=== PATIENT | male | born 1950 | race Caucasian/White ===

== ENCOUNTER 2020-08-07 15:52 | Inpatient (IN) | payer OTHER ==
--- NOTE | 2020-08-07 16:52 | BHS.RME ---
Substance Use & Tx History - Last Treatment Where was last treatment: ER ([facility] 1 week ago , [facility] yesterday and today,d/c paperwork indicates dx alcohol intoxication , given Lorazepam , Versed .) Physical/Psych/Mental Status - Behavior Eye Contact: Normal - Cooperativeness Cooperativeness: Cooperative - Thinking Thought Processes: Logical - Physical Health Problems Is patient presently having any pain?: Yes (right hand ) Does patient presently have any injuries (include location): Yes (right hand ) Does patient currently have a fever: No CIWA Nausea/Vomitin-No Nausea/No Vomiting Muscle Tremors: 4-Moderate,w/Arms Extend Anxiety: 3 Agitation: 0-Normal Activity Paroxysmal Sweats: 1-Minimal Palms Moist Orientation: 0-Oriented Tacttile Disturbances: 2-Mild Itch/Numbness/Burn Auditory Disturbances: 0-None Visual Disturbances: 0-None Headache: 0-None Present CIWA-Ar Total Score: 10
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
[2020-08-07] MEDS ORDERED: MENTHOL/PHENOL 1 EACH UD MM PRN (17:26)
[2020-08-07] MEDS ORDERED: ACETAMINOPHEN 325 MG TABLET (FP) PO PRN (17:26)
[2020-08-07] MEDS ORDERED: hydrOXYzine PAMOATE 25 MG CAPSULE (FP) PO PRN (17:26)
[2020-08-07] MEDS ORDERED: BISMUTH SUBSALICYLATE 524 MG/30 ML UD PO PRN (17:26)
[2020-08-07] MEDS ORDERED: MAGNESIUM HYDROX 2400MG/30ML ORAL SUSPENSION 30 ML CUP PO PRN (17:26)
[2020-08-07] MEDS ORDERED: MAGNESIUM CITRATE 300 ML BOTTLE PO PRN (17:26)
[2020-08-07] MEDS ORDERED: ONDANSETRON *ODT* 4 MG TABLET SL PRN (17:26)
[2020-08-07] MEDS ORDERED: MAG HYDROX/AL HYDROX/SIMETH 30 ML UNIT-DOSE CUP PO PRN (17:26)
[2020-08-07] MEDS ORDERED: chlordiazePOXIDE HCL 25 MG CAPSULE PO PRN (17:39)
[2020-08-07] MEDS ORDERED: chlordiazePOXIDE HCL 25 MG CAPSULE PO ONE (17:39)
[2020-08-07 18:03] VITALS: BMI 26.6
[2020-08-07] MEDS: chlordiazePOXIDE HCL 25 MG CAPSULE PO SCH (22:31)
[2020-08-07] MEDS: THIAMINE HCL 100 MG TABLET (FP) PO SCH (22:31)
[2020-08-07] MEDS: METOPROLOL TARTRATE 25 MG TABLET (FP) PO SCH (22:32)
[2020-08-07] MEDS: MELATONIN 5 MG TABLETS PO SCH (22:32)
[2020-08-07] MEDS: BACITRACIN 0.9 GM PACKET TP SCH (22:33)
[2020-08-08] MEDS: chlordiazePOXIDE HCL 25 MG CAPSULE PO SCH ×4 (05:57→22:15)
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
[2020-08-08] MEDS: BACITRACIN 0.9 GM PACKET TP SCH ×2 (10:19→22:12)
[2020-08-08] MEDS: PRENATAL VITAMINS W/ FOLIC ACID TABLET (FP) PO SCH (10:20)
[2020-08-08] MEDS: METOPROLOL TARTRATE 25 MG TABLET (FP) PO SCH ×2 (10:20→22:11)
[2020-08-08] MEDS: DIVALPROEX SODIUM 500 MG TABLET E.C. PO SCH ×2 (10:21→22:11)
[2020-08-08 10:22] LABS: ALBUMIN 3.6 g/dl (3.4-5.0); BILIRUBIN,TOTAL 2.5 mg/dL (0.2-1); BLOOD UREA NITROGEN 5.3 mg/dL (7-18); CALCIUM 9.1 mg/dL (8.5-10.1); CREATININE 0.8 mg/dL (0.55-1.3); POTASSIUM 3.9 mmol/L (3.5-5.1); TOT PROT 7.4 g/dl (6.4-8.2)
[2020-08-08 10:25] LABS: HEMATOCRIT 43.5 % (35.4-49); HEMOGLOBIN 14.6 GM/dL (11.7-16.9); MCH 31.9 pg (25.7-33.7); MCHC 33.6 g/dl (32.0-35.9); PLATELET COUNT 168 K/MM3 (134-434); RBC 4.58 M/mm3 (4.00-5.60); RDW 14.2 % (11.9-15.9); WHITE BLOOD COUNT 4.9 K/mm3 (4.0-10.0)
[2020-08-08] MEDS: OXYBUTYNIN CHLORIDE 5 MG TABLET PO SCH ×2 (11:16→22:11)
[2020-08-08] MEDS: CLINDAMYCIN PHOSPHATE 1% TOPICAL GEL 30 GM TUBE TP SCH ×2 (11:16→23:42)
[2020-08-08] MEDS: TAMSULOSIN HCL 0.4 MG CAP PO SCH (11:49)
[2020-08-08] MEDS: traZODone HCL 50 MG TABLET (FP) PO SCH (22:11)
[2020-08-08] MEDS: ATORVASTATIN CA 10 MG TABLET (FP) PO SCH (22:11)
[2020-08-08] MEDS: THIAMINE HCL 100 MG TABLET (FP) PO SCH (22:11)
[2020-08-08] MEDS: MELATONIN 5 MG TABLETS PO SCH (23:43)
[2020-08-09] MEDS: chlordiazePOXIDE HCL 25 MG CAPSULE PO SCH ×4 (05:37→23:03)
--- NOTE | 2020-08-09 09:28 | PN ---
[facility] CIWA - CIWA Score Nausea/Vomitin-Mild Nausea/No Vomiting Muscle Tremors: 2 Anxiety: 2 Agitation: 2 Paroxysmal Sweats: No Perspiration Orientation: 0-Oriented Tacttile Disturbances: 1-Very Mild Itch/Numbness Auditory Disturbances: 0-None Visual Disturbances: 0-None Headache: 2-Mild CIWA-Ar Total Score: 10 S Progress Note (SOAP) Subjective: alert,irritable,anxious,interrupted sleep,aching pain Objective: 08/09/20 15:00 Vital Signs Temperature 98.0 F 08/09/20 13:00 Pulse Rate 68 08/09/20 13:00 Respiratory Rate 16 08/09/20 13:00 Blood Pressure 103/64 08/09/20 13:00 O2 Sat by Pulse Oximetry (%) 98 08/09/20 13:00 08/09/20 15:00 Laboratory Last Values WBC 4.9 K/mm3 (4.0-10.0) 08/08/20 08:00 RBC 4.58 M/mm3 (4.00-5.60) 08/08/20 08:00 Hgb 14.6 GM/dL (11.7-16.9) 08/08/20 08:00 Hct 43.5 % (35.4-49) 08/08/20 08:00 MCV 95.0 fl (80-96) 08/08/20 08:00 MCH 31.9 pg (25.7-33.7) 08/08/20 08:00 MCHC 33.6 g/dl (32.0-35.9) 08/08/20 08:00 RDW 14.2 % (11.9-15.9) 08/08/20 08:00 Plt Count 168 K/MM3 (134-434) 08/08/20 08:00 MPV 10.0 fl (7.5-11.1) 08/08/20 08:00 Sodium 138 mmol/L (136-145) 08/09/20 08:00 Potassium 3.7 mmol/L (3.5-5.1) 08/09/20 08:00 Chloride 101 mmol/L (98-107) 08/09/20 08:00 Carbon Dioxide 31 mmol/L (21-32) 08/09/20 08:00 Anion Gap 6 MMOL/L (8-16) L 08/09/20 08:00 BUN 9.4 mg/dL (7-18) 08/09/20 08:00 Creatinine 0.8 mg/dL (0.55-1.3) 08/09/20 08:00 Est GFR (CKD-EPI)AfAm 105.64 08/09/20 08:00 Est GFR (CKD-EPI)NonAf 91.15 08/09/20 08:00 Random Glucose 109 mg/dL (74-106) H 08/09/20 08:00 Fasting Glucose 111 mg/dL (74-106) H 08/09/20 08:00 Calcium 8.9 mg/dL (8.5-10.1) 08/09/20 08:00 Total Bilirubin 1.9 mg/dL (0.2-1) H 08/09/20 08:00 AST 32 U/L (15-37) 08/09/20 08:00 ALT 40 U/L (13-61) 08/09/20 08:00 Alkaline Phosphatase 66 U/L (45-117) 08/09/20 08:00 Total Protein 6.8 g/dl (6.4-8.2) 08/09/20 08:00 Albumin 3.2 g/dl (3.4-5.0) L 08/09/20 08:00 Syphilis Serology Non-reactive (NONREACTIVE) 08/08/20 08:00 COVID-19 (DORA) Not detected (Not Detected) 08/07/20 18:25 HIV Ag/Ab Combo Qual Negative (NEGATIVE) 08/08/20 08:00 Assessment: 08/09/20 15:02 withdrawal symptom Plan: continue detox librium regimen,clindamycin topical gel bid old laceration of right thumb
[2020-08-09] MEDS: DIVALPROEX SODIUM 500 MG TABLET E.C. PO SCH ×2 (10:35→23:03)
[2020-08-09] MEDS: METOPROLOL TARTRATE 25 MG TABLET (FP) PO SCH ×2 (10:35→23:03)
[2020-08-09] MEDS: CLINDAMYCIN PHOSPHATE 1% TOPICAL GEL 30 GM TUBE TP SCH ×2 (10:35→23:04)
[2020-08-09] MEDS: PRENATAL VITAMINS W/ FOLIC ACID TABLET (FP) PO SCH (10:36)
[2020-08-09] MEDS: TAMSULOSIN HCL 0.4 MG CAP PO SCH (10:36)
[2020-08-09] MEDS: BACITRACIN 0.9 GM PACKET TP SCH ×2 (10:36→23:04)
[2020-08-09] MEDS: OXYBUTYNIN CHLORIDE 5 MG TABLET PO SCH ×2 (10:36→23:40)
[2020-08-09 10:53] LABS: ALBUMIN 3.2 g/dl (3.4-5.0); BILIRUBIN,TOTAL 1.9 mg/dL (0.2-1); BLOOD UREA NITROGEN 9.4 mg/dL (7-18); CALCIUM 8.9 mg/dL (8.5-10.1); CREATININE 0.8 mg/dL (0.55-1.3); POTASSIUM 3.7 mmol/L (3.5-5.1); TOT PROT 6.8 g/dl (6.4-8.2)
--- NOTE | 2020-08-09 15:47 | PN ---
[facility] Progress Note Note: patient has been on xeralto 20 mgs po daily,for last 2 months,for dvt left leg,and pulmonary embolism,medication ordered,also on keppra 750 mgs po bid for seizure
[2020-08-09] MEDS: IBUPROFEN 400 MG TABLET (FP) PO PRN (16:53)
[2020-08-09] MEDS: traZODone HCL 50 MG TABLET (FP) PO SCH (23:03)
[2020-08-09] MEDS: THIAMINE HCL 100 MG TABLET (FP) PO SCH (23:03)
[2020-08-09] MEDS: ATORVASTATIN CA 10 MG TABLET (FP) PO SCH (23:04)
[2020-08-09] MEDS: MELATONIN 5 MG TABLETS PO SCH (23:04)
[2020-08-10] MEDS ORDERED: chlordiazePOXIDE HCL 10 MG CAPSULE PO PRN
[2020-08-10] MEDS: chlordiazePOXIDE HCL 10 MG CAPSULE PO SCH ×4 (06:18→22:10)
[2020-08-10] MEDS: TAMSULOSIN HCL 0.4 MG CAP PO SCH (09:44)
[2020-08-10] MEDS: METOPROLOL TARTRATE 25 MG TABLET (FP) PO SCH ×2 (09:44→22:11)
[2020-08-10] MEDS: CLINDAMYCIN PHOSPHATE 1% TOPICAL GEL 30 GM TUBE TP SCH ×2 (09:44→22:11)
[2020-08-10] MEDS: DIVALPROEX SODIUM 500 MG TABLET E.C. PO SCH ×2 (09:44→22:10)
[2020-08-10] MEDS: BACITRACIN 0.9 GM PACKET TP SCH ×2 (09:44→22:11)
[2020-08-10] MEDS: PRENATAL VITAMINS W/ FOLIC ACID TABLET (FP) PO SCH (09:45)
[2020-08-10] MEDS: OXYBUTYNIN CHLORIDE 5 MG TABLET PO SCH ×2 (11:39→22:10)
--- NOTE | 2020-08-10 12:14 | PN ---
S CIWA - CIWA Score Nausea/Vomitin-No Nausea/No Vomiting Muscle Tremors: 2 Anxiety: 1-Mildly Anxious Agitation: 1-Slight > Activity Paroxysmal Sweats: 1-Minimal Palms Moist Orientation: 0-Oriented Tacttile Disturbances: 0-None Auditory Disturbances: 0-None Visual Disturbances: 0-None Headache: 0-None Present CIWA-Ar Total Score: 5 BHS Progress Note (SOAP) Subjective: sweats restless interrupted sleep Objective: 08/10/20 12:13 Vital Signs Temperature 98.0 F 08/10/20 09:05 Pulse Rate 82 08/10/20 09:05 Respiratory Rate 19 08/10/20 09:05 Blood Pressure 107/64 08/10/20 09:05 O2 Sat by Pulse Oximetry (%) 98 08/10/20 09:05 Laboratory Tests 08/07/20 08/08/20 08/08/20 18:25 08:00 08:00 WBC 4.9 RBC 4.58 Hgb 14.6 Hct 43.5 MCV 95.0 MCH 31.9 MCHC 33.6 RDW 14.2 Plt Count 168 MPV 10.0 Sodium Potassium Chloride Carbon Dioxide Anion Gap BUN Creatinine Est GFR (CKD-EPI)AfAm Est GFR (CKD-EPI)NonAf Random Glucose Fasting Glucose Calcium Total Bilirubin AST ALT Alkaline Phosphatase Total Protein Albumin Syphilis Serology Non-reactive COVID-19 (DORA) Not detected HIV Ag/Ab Combo Qual 08/08/20 08/08/20 08/09/20 08:00 08:00 08:00 WBC RBC Hgb Hct MCV MCH MCHC RDW Plt Count MPV Sodium 138 Potassium 3.9 Chloride 100 Carbon Dioxide 31 Anion Gap 6 L BUN 5.3 L Creatinine 0.8 Est GFR (CKD-EPI)AfAm 105.64 Est GFR (CKD-EPI)NonAf 91.15 Random Glucose 114 H Fasting Glucose 111 H Calcium 9.1 Total Bilirubin 2.5 H AST 42 H ALT 45 Alkaline Phosphatase 72 Total Protein 7.4 Albumin 3.6 Syphilis Serology COVID-19 (DORA) HIV Ag/Ab Combo Qual Negative 08/09/20 08:00 WBC RBC Hgb Hct MCV MCH MCHC RDW Plt Count MPV Sodium 138 Potassium 3.7 Chloride 101 Carbon Dioxide 31 Anion Gap 6 L BUN 9.4 Creatinine 0.8 Est GFR (CKD-EPI)AfAm 105.64 Est GFR (CKD-EPI)NonAf 91.15 Random Glucose 109 H Fasting Glucose Calcium 8.9 Total Bilirubin 1.9 H AST 32 ALT 40 Alkaline Phosphatase 66 Total Protein 6.8 Albumin 3.2 L Syphilis Serology COVID-19 (DORA) HIV Ag/Ab Combo Qual labs noted aaox3 ambulating no acute distress Assessment: 08/10/20 12:13 withdrawals Plan: continue detox
--- NOTE | 2020-08-10 12:26 | PN ---
S Progress Note Note: please disregard the note on this patient on 08/09/20 at 15.43,the note belong to other patient
[2020-08-10] MEDS: IBUPROFEN 400 MG TABLET (FP) PO PRN (17:32)
[2020-08-10] MEDS: ATORVASTATIN CA 10 MG TABLET (FP) PO SCH (22:10)
[2020-08-10] MEDS: ACETAMINOPHEN 325 MG TABLET (FP) PO PRN (22:10)
[2020-08-10] MEDS: traZODone HCL 50 MG TABLET (FP) PO SCH (22:10)
[2020-08-10] MEDS: THIAMINE HCL 100 MG TABLET (FP) PO SCH (22:11)
[2020-08-10] MEDS: MELATONIN 5 MG TABLETS PO SCH (22:11)
[2020-08-11] MEDS ORDERED: chlordiazePOXIDE HCL 10 MG CAPSULE PO SCH (05:00)
[2020-08-11] MEDS: IBUPROFEN 400 MG TABLET (FP) PO PRN (05:57)
[2020-08-11] MEDS ORDERED: chlordiazePOXIDE HCL 10 MG CAPSULE PO ONE (06:00)
[2020-08-11 06:22] VITALS: BP 105/63; PULSE 60; TEMP 96.8
--- NOTE | 2020-08-11 08:57 | DS ---
[facility] Detox Discharge Summary Admission Date: 08/07/20 Discharge Date: 08/11/20 - History Present History: Alcohol Dependence - Physical Exam Results Vital Signs: Vital Signs Temperature 96.8 F L 08/11/20 05:44 Pulse Rate 60 08/11/20 05:44 Respiratory Rate 16 08/11/20 05:44 Blood Pressure 105/63 08/11/20 05:44 O2 Sat by Pulse Oximetry (%) 95 08/11/20 05:44 Pertinent Admission Physical Exam Findings: Vital Signs Temperature 96.8 F L 08/11/20 05:44 Pulse Rate 60 08/11/20 05:44 Respiratory Rate 16 08/11/20 05:44 Blood Pressure 105/63 08/11/20 05:44 O2 Sat by Pulse Oximetry (%) 95 08/11/20 05:44 Laboratory Tests 08/07/20 08/08/20 08/08/20 18:25 08:00 08:00 WBC 4.9 RBC 4.58 Hgb 14.6 Hct 43.5 MCV 95.0 MCH 31.9 MCHC 33.6 RDW 14.2 Plt Count 168 MPV 10.0 Sodium Potassium Chloride Carbon Dioxide Anion Gap BUN Creatinine Est GFR (CKD-EPI)AfAm Est GFR (CKD-EPI)NonAf Random Glucose Fasting Glucose Calcium Total Bilirubin AST ALT Alkaline Phosphatase Total Protein Albumin Syphilis Serology Non-reactive COVID-19 (DORA) Not detected HIV Ag/Ab Combo Qual 08/08/20 08/08/20 08/09/20 08:00 08:00 08:00 WBC RBC Hgb Hct MCV MCH MCHC RDW Plt Count MPV Sodium 138 Potassium 3.9 Chloride 100 Carbon Dioxide 31 Anion Gap 6 L BUN 5.3 L Creatinine 0.8 Est GFR (CKD-EPI)AfAm 105.64 Est GFR (CKD-EPI)NonAf 91.15 Random Glucose 114 H Fasting Glucose 111 H Calcium 9.1 Total Bilirubin 2.5 H AST 42 H ALT 45 Alkaline Phosphatase 72 Total Protein 7.4 Albumin 3.6 Syphilis Serology COVID-19 (DORA) HIV Ag/Ab Combo Qual Negative 08/09/20 08:00 WBC RBC Hgb Hct MCV MCH MCHC RDW Plt Count MPV Sodium 138 Potassium 3.7 Chloride 101 Carbon Dioxide 31 Anion Gap 6 L BUN 9.4 Creatinine 0.8 Est GFR (CKD-EPI)AfAm 105.64 Est GFR (CKD-EPI)NonAf 91.15 Random Glucose 109 H Fasting Glucose Calcium 8.9 Total Bilirubin 1.9 H AST 32 ALT 40 Alkaline Phosphatase 66 Total Protein 6.8 Albumin 3.2 L Syphilis Serology COVID-19 (DORA) HIV Ag/Ab Combo Qual labs noted aaox3 ambulating no acute distress lungs CTA - Treatment Hospital Course: Detox Protocol Followed, Detoxed Safely, Responded well, Discharged Condition Good, Rehab Referral Accepted - Medication Discharge Medications: Ambulatory Orders Divalproex [Depakote -] 500 mg PO BID 08/07/20 Metoprolol Tartrate [Lopressor] mg PO 08/07/20 Oxybutynin Chloride [Ditropan -] 5 mg PO BID 08/07/20 Pravastatin Sodium mg PO 08/07/20 Tamsulosin HCl [Flomax] 0.4 mg PO DAILY 08/07/20 traZODone HCL [Trazodone HCl] 50 mg PO HS 08/07/20 - Diagnosis (1) Alcohol dependence with uncomplicated withdrawal Current Visit: Yes Status: Chronic (2) Alcohol-induced anxiety disorder Current Visit: Yes Status: Acute (3) Alcohol-induced mood disorder Current Visit: Yes Status: Acute (4) Alcohol-induced sleep disorder Current Visit: Yes Status: Acute (5) Bipolar disorder Current Visit: Yes Status: Chronic (6) HLD (hyperlipidemia) Current Visit: Yes Status: Chronic (7) HTN (hypertension) Current Visit: Yes Status: Chronic (8) PTSD (post-traumatic stress disorder) Current Visit: Yes Status: Chronic (9) Alcohol related seizure Current Visit: Yes Status: Resolved (10) Injury of right hand Current Visit: Yes Status: Acute - AMA Did Patient Leave Against Medical Advice: No
[2020-08-11] MEDS: CLINDAMYCIN PHOSPHATE 1% TOPICAL GEL 30 GM TUBE TP SCH (09:25)
[2020-08-11] MEDS: BACITRACIN 0.9 GM PACKET TP SCH (09:25)
[2020-08-11] MEDS: TAMSULOSIN HCL 0.4 MG CAP PO SCH (10:00)
[2020-08-11] MEDS: OXYBUTYNIN CHLORIDE 5 MG TABLET PO SCH (10:00)
[2020-08-11] MEDS: DIVALPROEX SODIUM 500 MG TABLET E.C. PO SCH (10:00)
[2020-08-11] MEDS: PRENATAL VITAMINS W/ FOLIC ACID TABLET (FP) PO SCH (10:01)
[2020-08-11] MEDS: METOPROLOL TARTRATE 25 MG TABLET (FP) PO SCH (10:01)
[2020-08-11] MEDS: ACETAMINOPHEN 325 MG TABLET (FP) PO PRN (10:02)
[2020-08-12] MEDS ORDERED: chlordiazePOXIDE HCL 10 MG CAPSULE PO ONE (05:00)
== END 2020-08-11 11:15 | disposition home or self-care (01) | DRG 897 ==
LOC: YASAS 15:52 → Y6N 17:30
PROVIDERS: ADMIT Allergy & Immunology; ATTEND Allergy & Immunology
PROC: HZ2ZZZZ Detoxification Services for Substance Abuse Treatment (ICD-10-PCS; principal; 2020-08-07)
DX: F10.230 Alcohol dependence with withdrawal, uncomplicated (principal); F10.220 Alcohol dependence with intoxication, uncomplicated; F10.282 Alcohol dependence with alcohol-induced sleep disorder; F10.280 Alcohol dependence with alcohol-induced anxiety disorder; F10.24 Alcohol dependence with alcohol-induced mood disorder; F31.9 Bipolar disorder, unspecified; F41.9 Anxiety disorder, unspecified; F41.0 Panic disorder [episodic paroxysmal anxiety]; F43.10 Post-traumatic stress disorder, unspecified; I10 Essential (primary) hypertension; E78.5 Hyperlipidemia, unspecified; M54.5 Low back pain; M25.552 Pain in left hip; M79.605 Pain in left leg; M79.601 Pain in right arm; M79.602 Pain in left arm; G89.29 Other chronic pain; N40.0 Benign prostatic hyperplasia without lower urinary tract symptoms; Z62.810 Personal history of physical and sexual abuse in childhood; Z86.69 Personal history of other diseases of the nervous system and sense organs; S61.411D Laceration without foreign body of right hand, subsequent encounter; W19.XXXD Unspecified fall, subsequent encounter
CPT/HCPCS: 36415; 80053; 82947; 85027; 86780; 87389; U0003

== ENCOUNTER 2020-10-25 11:52 | Inpatient (IN) | payer OTHER ==
[2020-10-25 13:35] VITALS: BMI 24.7
[2020-10-25] MEDS ORDERED: chlordiazePOXIDE HCL 25 MG CAPSULE PO PRN (14:17)
[2020-10-25] MEDS ORDERED: ACETAMINOPHEN 325 MG TABLET (FP) PO PRN (14:17)
[2020-10-25] MEDS ORDERED: MENTHOL/PHENOL 1 EACH UD MM PRN (14:17)
[2020-10-25] MEDS ORDERED: MAGNESIUM HYDROX 2400MG/30ML ORAL SUSPENSION 30 ML CUP PO PRN (14:17)
[2020-10-25] MEDS ORDERED: ONDANSETRON *ODT* 4 MG TABLET SL PRN (14:17)
[2020-10-25] MEDS ORDERED: MAGNESIUM CITRATE 300 ML BOTTLE PO PRN (14:17)
[2020-10-25] MEDS ORDERED: NICOTINE POLACRILEX 2 MG GUM BUC PRN (14:17)
[2020-10-25] MEDS ORDERED: MAG HYDROX/AL HYDROX/SIMETH 30 ML UNIT-DOSE CUP PO PRN (14:17)
[2020-10-25] MEDS: METHOCARBAMOL 500 MG TABLET PO PRN ×2 (15:45→22:16)
[2020-10-25 17:59] LABS: BLOOD UREA NITROGEN 5.3 mg/dL (7-18); CALCIUM 9.1 mg/dL (8.5-10.1); HEMATOCRIT 44.9 % (35.4-49); HEMOGLOBIN 14.7 GM/dL (11.7-16.9); MCH 31.4 pg (25.7-33.7); MCHC 32.7 g/dl (32.0-35.9); MEAN CELL VOLUME 96.2 fl (80-96); MEAN PLT VOLUME 10.3 fl (7.5-11.1); PLATELET COUNT 230 K/MM3 (134-434); RBC 4.67 M/mm3 (4.00-5.60); RDW 15.1 % (11.9-15.9); WHITE BLOOD COUNT 5.8 K/mm3 (4.0-10.0)
[2020-10-25 18:02] LABS: CREATININE 0.7 mg/dL (0.55-1.3)
[2020-10-25 18:04] LABS: BILIRUBIN,TOTAL 1.1 mg/dL (0.2-1); TOT PROT 7.8 g/dl (6.4-8.2)
[2020-10-25] MEDS: chlordiazePOXIDE HCL 25 MG CAPSULE PO SCH ×2 (18:06→22:16)
[2020-10-25] MEDS: hydrOXYzine PAMOATE 25 MG CAPSULE (FP) PO SCH ×2 (18:06→22:16)
[2020-10-25] MEDS: MELATONIN 5 MG TABLETS PO SCH (22:16)
[2020-10-25] MEDS: THIAMINE HCL 100 MG TABLET (FP) PO SCH (22:16)
[2020-10-26] MEDS: hydrOXYzine PAMOATE 25 MG CAPSULE (FP) PO SCH ×5 (05:30→22:19)
[2020-10-26] MEDS: chlordiazePOXIDE HCL 25 MG CAPSULE PO SCH ×4 (05:30→22:19)
[2020-10-26] MEDS: IBUPROFEN 400 MG TABLET (FP) PO PRN (05:31)
[2020-10-26] MEDS: PRENATAL VITAMINS W/ FOLIC ACID TABLET (FP) PO SCH (10:18)
[2020-10-26] MEDS: ACETAMINOPHEN 325 MG TABLET (FP) PO PRN (10:19)
[2020-10-26] MEDS: METHOCARBAMOL 500 MG TABLET PO PRN (10:19)
[2020-10-26] MEDS: METOPROLOL TARTRATE 50 MG TABLET (FP) PO SCH (12:29)
[2020-10-26] MEDS: MELATONIN 5 MG TABLETS PO SCH (22:18)
[2020-10-26] MEDS: traZODone HCL 100 MG TABLET (FP) PO SCH (22:19)
[2020-10-26] MEDS: ATORVASTATIN CA 10 MG TABLET (FP) PO SCH (22:19)
[2020-10-26] MEDS: THIAMINE HCL 100 MG TABLET (FP) PO SCH (22:19)
[2020-10-26] MEDS: OXYBUTYNIN CHLORIDE 5 MG TABLET PO SCH (23:02)
[2020-10-27] MEDS: hydrOXYzine PAMOATE 25 MG CAPSULE (FP) PO SCH ×5 (05:49→22:14)
[2020-10-27] MEDS: chlordiazePOXIDE HCL 25 MG CAPSULE PO SCH ×4 (05:49→22:14)
[2020-10-27] MEDS: IBUPROFEN 400 MG TABLET (FP) PO PRN ×2 (07:01→22:18)
[2020-10-27] MEDS ORDERED: ESCITALOPRAM OXALATE 10 MG TABLET ONE (09:47)
[2020-10-27] MEDS: PRENATAL VITAMINS W/ FOLIC ACID TABLET (FP) PO SCH (10:07)
[2020-10-27] MEDS: ESCITALOPRAM OXALATE 20 MG TABLET PO SCH (10:08)
[2020-10-27] MEDS: TAMSULOSIN HCL 0.4 MG CAP PO SCH (10:08)
[2020-10-27] MEDS: OXYBUTYNIN CHLORIDE 5 MG TABLET PO SCH ×2 (10:08→22:15)
[2020-10-27] MEDS: METOPROLOL TARTRATE 50 MG TABLET (FP) PO SCH (10:08)
[2020-10-27] MEDS: ACETAMINOPHEN 325 MG TABLET (FP) PO PRN (10:10)
[2020-10-27] MEDS: METHOCARBAMOL 500 MG TABLET PO PRN ×2 (10:10→17:18)
[2020-10-27] MEDS: LIDOCAINE 5% TOPICAL PATCH TP SCH (15:15)
[2020-10-27] MEDS: ATORVASTATIN CA 10 MG TABLET (FP) PO SCH (22:14)
[2020-10-27] MEDS: THIAMINE HCL 100 MG TABLET (FP) PO SCH (22:14)
[2020-10-27] MEDS: traZODone HCL 100 MG TABLET (FP) PO SCH (22:14)
[2020-10-27] MEDS: LIDOCAINE PATCH REMOVAL MC SCH (22:16)
[2020-10-27] MEDS: MELATONIN 5 MG TABLETS PO SCH (22:17)
[2020-10-28] MEDS ORDERED: chlordiazePOXIDE HCL 10 MG CAPSULE PO PRN
[2020-10-28] MEDS: chlordiazePOXIDE HCL 10 MG CAPSULE PO SCH ×4 (05:44→22:14)
[2020-10-28] MEDS: hydrOXYzine PAMOATE 25 MG CAPSULE (FP) PO SCH ×5 (05:44→22:14)
[2020-10-28] MEDS: IBUPROFEN 400 MG TABLET (FP) PO PRN ×2 (05:45→22:16)
[2020-10-28] MEDS: METHOCARBAMOL 500 MG TABLET PO PRN ×2 (05:46→17:38)
[2020-10-28] MEDS: TAMSULOSIN HCL 0.4 MG CAP PO SCH (09:23)
[2020-10-28] MEDS: PRENATAL VITAMINS W/ FOLIC ACID TABLET (FP) PO SCH (10:22)
[2020-10-28] MEDS: OXYBUTYNIN CHLORIDE 5 MG TABLET PO SCH ×2 (10:22→22:14)
[2020-10-28] MEDS: METOPROLOL TARTRATE 50 MG TABLET (FP) PO SCH (10:22)
[2020-10-28] MEDS: ESCITALOPRAM OXALATE 20 MG TABLET PO SCH (10:23)
[2020-10-28] MEDS: LIDOCAINE 5% TOPICAL PATCH TP SCH (10:24)
[2020-10-28] MEDS: ACETAMINOPHEN 325 MG TABLET (FP) PO PRN ×2 (10:25→17:37)
[2020-10-28] MEDS: ATORVASTATIN CA 10 MG TABLET (FP) PO SCH (22:14)
[2020-10-28] MEDS: traZODone HCL 100 MG TABLET (FP) PO SCH (22:14)
[2020-10-28] MEDS: THIAMINE HCL 100 MG TABLET (FP) PO SCH (22:15)
[2020-10-28] MEDS: MELATONIN 5 MG TABLETS PO SCH (22:15)
[2020-10-28] MEDS: LIDOCAINE PATCH REMOVAL MC SCH (22:16)
[2020-10-28] MEDS: BISMUTH SUBSALICYLATE 262 MG/15 ML BTL PO PRN (22:18)
[2020-10-29] MEDS: chlordiazePOXIDE HCL 10 MG CAPSULE PO SCH ×2 (05:49→17:26)
[2020-10-29] MEDS: hydrOXYzine PAMOATE 25 MG CAPSULE (FP) PO SCH ×5 (05:49→21:59)
[2020-10-29] MEDS: METHOCARBAMOL 500 MG TABLET PO PRN ×2 (05:50→17:28)
[2020-10-29] MEDS: IBUPROFEN 400 MG TABLET (FP) PO PRN ×2 (06:11→17:27)
[2020-10-29] MEDS: TAMSULOSIN HCL 0.4 MG CAP PO SCH (09:24)
[2020-10-29] MEDS: PRENATAL VITAMINS W/ FOLIC ACID TABLET (FP) PO SCH (10:24)
[2020-10-29] MEDS: METOPROLOL TARTRATE 50 MG TABLET (FP) PO SCH (10:24)
[2020-10-29] MEDS: OXYBUTYNIN CHLORIDE 5 MG TABLET PO SCH ×2 (10:24→21:59)
[2020-10-29] MEDS: LIDOCAINE 5% TOPICAL PATCH TP SCH (10:24)
[2020-10-29] MEDS: ESCITALOPRAM OXALATE 20 MG TABLET PO SCH (10:24)
[2020-10-29] MEDS: ACETAMINOPHEN 325 MG TABLET (FP) PO PRN ×2 (10:25→22:01)
[2020-10-29] MEDS: BISMUTH SUBSALICYLATE 262 MG/15 ML BTL PO PRN ×3 (10:26→22:04)
[2020-10-29] MEDS: LIDOCAINE PATCH REMOVAL MC SCH (21:59)
[2020-10-29] MEDS: ATORVASTATIN CA 10 MG TABLET (FP) PO SCH (21:59)
[2020-10-29] MEDS: THIAMINE HCL 100 MG TABLET (FP) PO SCH (21:59)
[2020-10-29] MEDS: MELATONIN 5 MG TABLETS PO SCH (21:59)
[2020-10-29] MEDS: traZODone HCL 100 MG TABLET (FP) PO SCH (21:59)
[2020-10-30] MEDS ORDERED: chlordiazePOXIDE HCL 10 MG CAPSULE PO ONE (05:00)
[2020-10-30] MEDS: hydrOXYzine PAMOATE 25 MG CAPSULE (FP) PO SCH ×5 (05:40→21:12)
[2020-10-30] MEDS: IBUPROFEN 400 MG TABLET (FP) PO PRN ×2 (05:41→10:47)
[2020-10-30] MEDS: METHOCARBAMOL 500 MG TABLET PO PRN ×3 (05:42→17:45)
[2020-10-30] MEDS ORDERED: ESCITALOPRAM OXALATE 10 MG TABLET ONE (09:19)
[2020-10-30] MEDS: ESCITALOPRAM OXALATE 20 MG TABLET PO SCH (09:28)
[2020-10-30] MEDS: METOPROLOL TARTRATE 50 MG TABLET (FP) PO SCH (09:28)
[2020-10-30] MEDS: TAMSULOSIN HCL 0.4 MG CAP PO SCH (09:28)
[2020-10-30] MEDS: OXYBUTYNIN CHLORIDE 5 MG TABLET PO SCH ×2 (09:28→21:12)
[2020-10-30] MEDS: LIDOCAINE 5% TOPICAL PATCH TP SCH (09:30)
[2020-10-30] MEDS: PRENATAL VITAMINS W/ FOLIC ACID TABLET (FP) PO SCH (09:30)
[2020-10-30] MEDS: BISMUTH SUBSALICYLATE 262 MG/15 ML BTL PO PRN (11:17)
[2020-10-30] MEDS: ACETAMINOPHEN 325 MG TABLET (FP) PO PRN (14:34)
[2020-10-30] MEDS ORDERED: PT OWN MED DRAWER 7, Y5N ONE (20:21)
[2020-10-30] MEDS: ATORVASTATIN CA 10 MG TABLET (FP) PO SCH (21:12)
[2020-10-30] MEDS: traZODone HCL 100 MG TABLET (FP) PO SCH (21:12)
[2020-10-30] MEDS: LIDOCAINE PATCH REMOVAL MC SCH (21:12)
[2020-10-30] MEDS: THIAMINE HCL 100 MG TABLET (FP) PO SCH (21:12)
[2020-10-30] MEDS: MELATONIN 5 MG TABLETS PO SCH (21:12)
[2020-10-31] MEDS: hydrOXYzine PAMOATE 25 MG CAPSULE (FP) PO SCH ×3 (06:37→14:11)
[2020-10-31] MEDS: METHOCARBAMOL 500 MG TABLET PO PRN (06:39)
[2020-10-31] MEDS: IBUPROFEN 400 MG TABLET (FP) PO PRN ×2 (06:39→21:09)
[2020-10-31] MEDS: TAMSULOSIN HCL 0.4 MG CAP PO SCH (07:37)
[2020-10-31] MEDS ORDERED: PT OWN MED DRAWER 7, Y5N ONE ×4 (08:47→19:47)
[2020-10-31] MEDS: OXYBUTYNIN CHLORIDE 5 MG TABLET PO SCH ×2 (10:06→21:08)
[2020-10-31] MEDS: LIDOCAINE 5% TOPICAL PATCH TP SCH (10:07)
[2020-10-31] MEDS: ESCITALOPRAM OXALATE 20 MG TABLET PO SCH (10:07)
[2020-10-31] MEDS: PRENATAL VITAMINS W/ FOLIC ACID TABLET (FP) PO SCH (10:07)
[2020-10-31] MEDS: METOPROLOL TARTRATE 50 MG TABLET (FP) PO SCH (10:08)
[2020-10-31] MEDS ORDERED: PNEUMOC 13-VAL CONJ-DIP CRM/PF 0.5 ML DISP.SYRIN IM ONE (12:00)
[2020-10-31 13:25] LABS: HIV INTERPRETATION NEGATIVE (NEGATIVE)
[2020-10-31] MEDS: ATORVASTATIN CA 10 MG TABLET (FP) PO SCH (21:08)
[2020-10-31] MEDS: THIAMINE HCL 100 MG TABLET (FP) PO SCH (21:08)
[2020-10-31] MEDS: traZODone HCL 100 MG TABLET (FP) PO SCH (21:08)
[2020-10-31] MEDS: MELATONIN 5 MG TABLETS PO SCH (21:08)
[2020-10-31] MEDS: LIDOCAINE PATCH REMOVAL MC SCH (21:10)
[2020-11-01] MEDS: IBUPROFEN 400 MG TABLET (FP) PO PRN (06:15)
[2020-11-01] MEDS: TAMSULOSIN HCL 0.4 MG CAP PO SCH (07:41)
[2020-11-01] MEDS ORDERED: PT OWN MED DRAWER 7, Y5N ONE ×2 (08:34→18:33)
[2020-11-01] MEDS: ESCITALOPRAM OXALATE 20 MG TABLET PO SCH (10:25)
[2020-11-01] MEDS: OXYBUTYNIN CHLORIDE 5 MG TABLET PO SCH ×2 (10:25→21:02)
[2020-11-01] MEDS: LIDOCAINE 5% TOPICAL PATCH TP SCH (10:25)
[2020-11-01] MEDS: METOPROLOL TARTRATE 50 MG TABLET (FP) PO SCH (10:26)
[2020-11-01] MEDS: PRENATAL VITAMINS W/ FOLIC ACID TABLET (FP) PO SCH (10:27)
[2020-11-01] MEDS ORDERED: HYDROCORTISONE 1% TOPICAL OINT 30 GM TUBE TP PRN (15:17)
[2020-11-01] MEDS: METHOCARBAMOL 500 MG TABLET PO SCH ×2 (18:00→21:02)
[2020-11-01] MEDS: ATORVASTATIN CA 10 MG TABLET (FP) PO SCH (21:02)
[2020-11-01] MEDS: MELATONIN 5 MG TABLETS PO SCH (21:02)
[2020-11-01] MEDS: THIAMINE HCL 100 MG TABLET (FP) PO SCH (21:02)
[2020-11-01] MEDS: traZODone HCL 100 MG TABLET (FP) PO SCH (21:02)
[2020-11-01] MEDS: DIVALPROEX SODIUM 500 MG TABLET E.C. PO SCH (21:03)
[2020-11-01] MEDS: LIDOCAINE PATCH REMOVAL MC SCH (21:03)
[2020-11-02] MEDS: IBUPROFEN 400 MG TABLET (FP) PO PRN (06:07)
[2020-11-02] MEDS: TAMSULOSIN HCL 0.4 MG CAP PO SCH (07:31)
[2020-11-02] MEDS ORDERED: PT OWN MED DRAWER 7, Y5N ONE ×2 (08:58→09:43)
[2020-11-02] MEDS: ESCITALOPRAM OXALATE 20 MG TABLET PO SCH (09:42)
[2020-11-02] MEDS: LIDOCAINE 5% TOPICAL PATCH TP SCH (09:42)
[2020-11-02] MEDS: DIVALPROEX SODIUM 500 MG TABLET E.C. PO SCH ×2 (09:42→21:33)
[2020-11-02] MEDS: OXYBUTYNIN CHLORIDE 5 MG TABLET PO SCH ×2 (09:42→21:33)
[2020-11-02] MEDS: PRENATAL VITAMINS W/ FOLIC ACID TABLET (FP) PO SCH (09:42)
[2020-11-02] MEDS: METHOCARBAMOL 500 MG TABLET PO SCH ×4 (09:44→21:32)
[2020-11-02] MEDS: METOPROLOL TARTRATE 50 MG TABLET (FP) PO SCH (11:04)
[2020-11-02] MEDS: traZODone HCL 100 MG TABLET (FP) PO SCH (21:32)
[2020-11-02] MEDS: ATORVASTATIN CA 10 MG TABLET (FP) PO SCH (21:32)
[2020-11-02] MEDS: THIAMINE HCL 100 MG TABLET (FP) PO SCH (21:33)
[2020-11-02] MEDS: MELATONIN 5 MG TABLETS PO SCH (21:33)
[2020-11-02] MEDS: LIDOCAINE PATCH REMOVAL MC SCH (21:36)
[2020-11-03] MEDS: TAMSULOSIN HCL 0.4 MG CAP PO SCH (07:48)
[2020-11-03] MEDS: OXYBUTYNIN CHLORIDE 5 MG TABLET PO SCH ×2 (09:47→21:04)
[2020-11-03] MEDS: LIDOCAINE 5% TOPICAL PATCH TP SCH (09:47)
[2020-11-03] MEDS: METHOCARBAMOL 500 MG TABLET PO SCH ×4 (09:47→21:03)
[2020-11-03] MEDS: ESCITALOPRAM OXALATE 20 MG TABLET PO SCH (09:47)
[2020-11-03] MEDS: PRENATAL VITAMINS W/ FOLIC ACID TABLET (FP) PO SCH (09:47)
[2020-11-03] MEDS: METOPROLOL TARTRATE 50 MG TABLET (FP) PO SCH (09:47)
[2020-11-03] MEDS: DIVALPROEX SODIUM 500 MG TABLET E.C. PO SCH ×2 (09:47→21:02)
[2020-11-03] MEDS: IBUPROFEN 400 MG TABLET (FP) PO PRN ×2 (09:48→21:04)
[2020-11-03] MEDS: traZODone HCL 100 MG TABLET (FP) PO SCH (21:02)
[2020-11-03] MEDS: ATORVASTATIN CA 10 MG TABLET (FP) PO SCH (21:02)
[2020-11-03] MEDS: THIAMINE HCL 100 MG TABLET (FP) PO SCH (21:02)
[2020-11-03] MEDS: MELATONIN 5 MG TABLETS PO SCH (21:02)
[2020-11-03] MEDS ORDERED: PT OWN MED DRAWER 7, Y5N ONE (21:04)
[2020-11-03] MEDS: LIDOCAINE PATCH REMOVAL MC SCH (21:05)
[2020-11-04] MEDS: TAMSULOSIN HCL 0.4 MG CAP PO SCH (07:43)
[2020-11-04] MEDS: METHOCARBAMOL 500 MG TABLET PO SCH ×4 (09:51→21:48)
[2020-11-04] MEDS: PRENATAL VITAMINS W/ FOLIC ACID TABLET (FP) PO SCH (09:51)
[2020-11-04] MEDS: DIVALPROEX SODIUM 500 MG TABLET E.C. PO SCH ×2 (09:51→21:48)
[2020-11-04] MEDS: METOPROLOL TARTRATE 50 MG TABLET (FP) PO SCH (09:51)
[2020-11-04] MEDS: OXYBUTYNIN CHLORIDE 5 MG TABLET PO SCH ×2 (09:52→21:48)
[2020-11-04] MEDS: IBUPROFEN 400 MG TABLET (FP) PO PRN (09:52)
[2020-11-04] MEDS: ESCITALOPRAM OXALATE 20 MG TABLET PO SCH (09:52)
[2020-11-04] MEDS: LIDOCAINE 5% TOPICAL PATCH TP SCH (09:52)
[2020-11-04] MEDS: ATORVASTATIN CA 10 MG TABLET (FP) PO SCH (21:48)
[2020-11-04] MEDS: traZODone HCL 100 MG TABLET (FP) PO SCH (21:48)
[2020-11-04] MEDS: THIAMINE HCL 100 MG TABLET (FP) PO SCH (21:49)
[2020-11-04] MEDS: MELATONIN 5 MG TABLETS PO SCH (21:49)
[2020-11-04] MEDS: LIDOCAINE PATCH REMOVAL MC SCH (21:49)
[2020-11-05] MEDS: TAMSULOSIN HCL 0.4 MG CAP PO SCH (07:54)
[2020-11-05] MEDS: LIDOCAINE 5% TOPICAL PATCH TP SCH (09:58)
[2020-11-05] MEDS: METHOCARBAMOL 500 MG TABLET PO SCH ×4 (09:58→21:06)
[2020-11-05] MEDS: ESCITALOPRAM OXALATE 20 MG TABLET PO SCH (09:58)
[2020-11-05] MEDS: OXYBUTYNIN CHLORIDE 5 MG TABLET PO SCH ×2 (09:58→23:18)
[2020-11-05] MEDS: DIVALPROEX SODIUM 500 MG TABLET E.C. PO SCH ×2 (09:58→21:06)
[2020-11-05] MEDS: IBUPROFEN 400 MG TABLET (FP) PO PRN (09:58)
[2020-11-05] MEDS: METOPROLOL TARTRATE 50 MG TABLET (FP) PO SCH (09:58)
[2020-11-05] MEDS: PRENATAL VITAMINS W/ FOLIC ACID TABLET (FP) PO SCH (09:58)
[2020-11-05] MEDS: THIAMINE HCL 100 MG TABLET (FP) PO SCH (21:06)
[2020-11-05] MEDS: MELATONIN 5 MG TABLETS PO SCH (21:06)
[2020-11-05] MEDS: traZODone HCL 100 MG TABLET (FP) PO SCH (21:06)
[2020-11-05] MEDS: ATORVASTATIN CA 10 MG TABLET (FP) PO SCH (21:06)
[2020-11-05] MEDS: LIDOCAINE PATCH REMOVAL MC SCH (21:07)
[2020-11-06] MEDS: TAMSULOSIN HCL 0.4 MG CAP PO SCH (07:46)
[2020-11-06] MEDS: METHOCARBAMOL 500 MG TABLET PO SCH ×4 (09:38→21:20)
[2020-11-06] MEDS: METOPROLOL TARTRATE 50 MG TABLET (FP) PO SCH (09:38)
[2020-11-06] MEDS: PRENATAL VITAMINS W/ FOLIC ACID TABLET (FP) PO SCH (09:38)
[2020-11-06] MEDS: OXYBUTYNIN CHLORIDE 5 MG TABLET PO SCH ×2 (09:38→21:20)
[2020-11-06] MEDS: LIDOCAINE 5% TOPICAL PATCH TP SCH (09:38)
[2020-11-06] MEDS: ESCITALOPRAM OXALATE 20 MG TABLET PO SCH (09:38)
[2020-11-06] MEDS: DIVALPROEX SODIUM 500 MG TABLET E.C. PO SCH ×2 (09:38→21:20)
[2020-11-06] MEDS: IBUPROFEN 400 MG TABLET (FP) PO PRN ×2 (09:40→21:21)
[2020-11-06 11:32] LABS: BASO % 1.1 % (0-2.0); HEMATOCRIT 45.9 % (35.4-49); HEMOGLOBIN 15.2 GM/dL (11.7-16.9); LYMPH % 37.6 % (8-40); MCH 31.9 pg (25.7-33.7); MCHC 33.1 g/dl (32.0-35.9); MEAN CELL VOLUME 96.1 fl (80-96); MEAN PLT VOLUME 10.4 fl (7.5-11.1); MONO % 10.1 % (3.8-10.2); NEUT % 50.2 % (42.8-82.8); PLATELET COUNT 216 K/MM3 (134-434); RBC 4.77 M/mm3 (4.00-5.60); RDW 14.4 % (11.9-15.9); WHITE BLOOD COUNT 7.1 K/mm3 (4.0-10.0)
[2020-11-06 11:35] LABS: ALBUMIN 3.8 g/dl (3.4-5.0); BLOOD UREA NITROGEN 14.3 mg/dL (7-18); CALCIUM 9.3 mg/dL (8.5-10.1)
[2020-11-06 11:39] LABS: CREATININE 0.9 mg/dL (0.55-1.3)
[2020-11-06 11:40] LABS: BILIRUBIN,TOTAL 1.3 mg/dL (0.2-1); TOT PROT 7.4 g/dl (6.4-8.2)
[2020-11-06] MEDS: THIAMINE HCL 100 MG TABLET (FP) PO SCH (21:20)
[2020-11-06] MEDS: traZODone HCL 100 MG TABLET (FP) PO SCH (21:20)
[2020-11-06] MEDS: ATORVASTATIN CA 10 MG TABLET (FP) PO SCH (21:20)
[2020-11-06] MEDS: MELATONIN 5 MG TABLETS PO SCH (21:20)
[2020-11-06] MEDS: LIDOCAINE PATCH REMOVAL MC SCH (21:22)
[2020-11-07] MEDS: TAMSULOSIN HCL 0.4 MG CAP PO SCH (07:31)
[2020-11-07] MEDS ORDERED: PT OWN MED DRAWER 7, Y5N ONE (08:50)
[2020-11-07] MEDS: ESCITALOPRAM OXALATE 20 MG TABLET PO SCH (09:40)
[2020-11-07] MEDS: PRENATAL VITAMINS W/ FOLIC ACID TABLET (FP) PO SCH (09:40)
[2020-11-07] MEDS: METOPROLOL TARTRATE 50 MG TABLET (FP) PO SCH (09:40)
[2020-11-07] MEDS: LIDOCAINE 5% TOPICAL PATCH TP SCH (09:40)
[2020-11-07] MEDS: DIVALPROEX SODIUM 500 MG TABLET E.C. PO SCH ×2 (09:40→21:06)
[2020-11-07] MEDS: METHOCARBAMOL 500 MG TABLET PO SCH ×4 (09:41→21:07)
[2020-11-07] MEDS: OXYBUTYNIN CHLORIDE 5 MG TABLET PO SCH ×2 (09:41→21:06)
[2020-11-07] MEDS: traZODone HCL 100 MG TABLET (FP) PO SCH (21:06)
[2020-11-07] MEDS: ATORVASTATIN CA 10 MG TABLET (FP) PO SCH (21:06)
[2020-11-07] MEDS: LIDOCAINE PATCH REMOVAL MC SCH (21:06)
[2020-11-07] MEDS: MELATONIN 5 MG TABLETS PO SCH (21:06)
[2020-11-07] MEDS: THIAMINE HCL 100 MG TABLET (FP) PO SCH (21:07)
[2020-11-08] MEDS: TAMSULOSIN HCL 0.4 MG CAP PO SCH (08:31)
[2020-11-08] MEDS: METOPROLOL TARTRATE 50 MG TABLET (FP) PO SCH (09:31)
[2020-11-08] MEDS: DIVALPROEX SODIUM 500 MG TABLET E.C. PO SCH ×2 (09:31→21:32)
[2020-11-08] MEDS: ESCITALOPRAM OXALATE 20 MG TABLET PO SCH (09:31)
[2020-11-08] MEDS: PRENATAL VITAMINS W/ FOLIC ACID TABLET (FP) PO SCH (09:31)
[2020-11-08] MEDS: METHOCARBAMOL 500 MG TABLET PO SCH ×4 (09:31→21:32)
[2020-11-08] MEDS: OXYBUTYNIN CHLORIDE 5 MG TABLET PO SCH ×2 (09:32→21:32)
[2020-11-08] MEDS: LIDOCAINE 5% TOPICAL PATCH TP SCH (09:32)
[2020-11-08] MEDS: THIAMINE HCL 100 MG TABLET (FP) PO SCH (21:32)
[2020-11-08] MEDS: traZODone HCL 100 MG TABLET (FP) PO SCH (21:32)
[2020-11-08] MEDS: ATORVASTATIN CA 10 MG TABLET (FP) PO SCH (21:32)
[2020-11-08] MEDS: LIDOCAINE PATCH REMOVAL MC SCH (21:33)
[2020-11-08] MEDS: MELATONIN 5 MG TABLETS PO SCH (21:33)
[2020-11-09] MEDS: TAMSULOSIN HCL 0.4 MG CAP PO SCH (07:54)
[2020-11-09] MEDS: METOPROLOL TARTRATE 50 MG TABLET (FP) PO SCH (09:47)
[2020-11-09] MEDS: DIVALPROEX SODIUM 500 MG TABLET E.C. PO SCH ×2 (09:47→21:49)
[2020-11-09] MEDS: ESCITALOPRAM OXALATE 20 MG TABLET PO SCH (09:47)
[2020-11-09] MEDS: OXYBUTYNIN CHLORIDE 5 MG TABLET PO SCH ×2 (09:47→21:49)
[2020-11-09] MEDS: METHOCARBAMOL 500 MG TABLET PO SCH (09:47)
[2020-11-09] MEDS: PRENATAL VITAMINS W/ FOLIC ACID TABLET (FP) PO SCH (09:49)
[2020-11-09] MEDS: LIDOCAINE 5% TOPICAL PATCH TP SCH (09:49)
[2020-11-09] MEDS: METHOCARBAMOL 750 MG TABLET PO SCH ×3 (14:30→21:49)
[2020-11-09] MEDS: MELATONIN 5 MG TABLETS PO SCH (21:49)
[2020-11-09] MEDS: LIDOCAINE PATCH REMOVAL MC SCH (21:49)
[2020-11-09] MEDS: traZODone HCL 100 MG TABLET (FP) PO SCH (21:49)
[2020-11-09] MEDS: ATORVASTATIN CA 10 MG TABLET (FP) PO SCH (21:49)
[2020-11-09] MEDS: THIAMINE HCL 100 MG TABLET (FP) PO SCH (21:49)
[2020-11-10] MEDS: TAMSULOSIN HCL 0.4 MG CAP PO SCH (07:31)
[2020-11-10] MEDS: METOPROLOL TARTRATE 50 MG TABLET (FP) PO SCH (09:58)
[2020-11-10] MEDS: ESCITALOPRAM OXALATE 20 MG TABLET PO SCH (09:58)
[2020-11-10] MEDS: LIDOCAINE 5% TOPICAL PATCH TP SCH (09:58)
[2020-11-10] MEDS: DIVALPROEX SODIUM 500 MG TABLET E.C. PO SCH ×2 (09:58→21:04)
[2020-11-10] MEDS: OXYBUTYNIN CHLORIDE 5 MG TABLET PO SCH ×2 (09:58→21:04)
[2020-11-10] MEDS: PRENATAL VITAMINS W/ FOLIC ACID TABLET (FP) PO SCH (09:59)
[2020-11-10] MEDS: METHOCARBAMOL 750 MG TABLET PO SCH ×4 (09:59→21:04)
[2020-11-10] MEDS: traZODone HCL 100 MG TABLET (FP) PO SCH (21:04)
[2020-11-10] MEDS: MELATONIN 5 MG TABLETS PO SCH (21:04)
[2020-11-10] MEDS: THIAMINE HCL 100 MG TABLET (FP) PO SCH (21:04)
[2020-11-10] MEDS: ATORVASTATIN CA 10 MG TABLET (FP) PO SCH (21:04)
[2020-11-10] MEDS: LIDOCAINE PATCH REMOVAL MC SCH (21:04)
[2020-11-11] MEDS: TAMSULOSIN HCL 0.4 MG CAP PO SCH (07:40)
[2020-11-11] MEDS: DIVALPROEX SODIUM 500 MG TABLET E.C. PO SCH ×2 (10:43→21:38)
[2020-11-11] MEDS: ESCITALOPRAM OXALATE 20 MG TABLET PO SCH (10:43)
[2020-11-11] MEDS: OXYBUTYNIN CHLORIDE 5 MG TABLET PO SCH ×2 (10:43→21:38)
[2020-11-11] MEDS: LIDOCAINE 5% TOPICAL PATCH TP SCH (10:44)
[2020-11-11] MEDS: PRENATAL VITAMINS W/ FOLIC ACID TABLET (FP) PO SCH (10:44)
[2020-11-11] MEDS: METHOCARBAMOL 750 MG TABLET PO SCH ×4 (10:44→21:38)
[2020-11-11] MEDS: METOPROLOL TARTRATE 50 MG TABLET (FP) PO SCH (10:44)
[2020-11-11] MEDS: THIAMINE HCL 100 MG TABLET (FP) PO SCH (21:37)
[2020-11-11] MEDS: MELATONIN 5 MG TABLETS PO SCH (21:37)
[2020-11-11] MEDS: LIDOCAINE PATCH REMOVAL MC SCH (21:38)
[2020-11-11] MEDS: ATORVASTATIN CA 10 MG TABLET (FP) PO SCH (21:38)
[2020-11-11] MEDS: traZODone HCL 100 MG TABLET (FP) PO SCH (21:38)
[2020-11-12] MEDS: TAMSULOSIN HCL 0.4 MG CAP PO SCH (07:52)
[2020-11-12] MEDS: METHOCARBAMOL 750 MG TABLET PO SCH ×4 (09:40→21:09)
[2020-11-12] MEDS: LIDOCAINE 5% TOPICAL PATCH TP SCH (09:40)
[2020-11-12] MEDS: DIVALPROEX SODIUM 500 MG TABLET E.C. PO SCH ×2 (09:40→21:09)
[2020-11-12] MEDS: ESCITALOPRAM OXALATE 20 MG TABLET PO SCH (09:40)
[2020-11-12] MEDS: METOPROLOL TARTRATE 50 MG TABLET (FP) PO SCH (09:40)
[2020-11-12] MEDS: PRENATAL VITAMINS W/ FOLIC ACID TABLET (FP) PO SCH (09:40)
[2020-11-12] MEDS: OXYBUTYNIN CHLORIDE 5 MG TABLET PO SCH ×2 (09:40→21:09)
[2020-11-12] MEDS: traZODone HCL 100 MG TABLET (FP) PO SCH (21:09)
[2020-11-12] MEDS: THIAMINE HCL 100 MG TABLET (FP) PO SCH (21:09)
[2020-11-12] MEDS: MELATONIN 5 MG TABLETS PO SCH (21:09)
[2020-11-12] MEDS: ATORVASTATIN CA 10 MG TABLET (FP) PO SCH (21:09)
[2020-11-12] MEDS: LIDOCAINE PATCH REMOVAL MC SCH (21:10)
[2020-11-13] MEDS: TAMSULOSIN HCL 0.4 MG CAP PO SCH (07:44)
[2020-11-13] MEDS: METOPROLOL TARTRATE 50 MG TABLET (FP) PO SCH (10:26)
[2020-11-13] MEDS: METHOCARBAMOL 750 MG TABLET PO SCH ×4 (10:26→21:25)
[2020-11-13] MEDS: LIDOCAINE 5% TOPICAL PATCH TP SCH (10:26)
[2020-11-13] MEDS: ESCITALOPRAM OXALATE 20 MG TABLET PO SCH (10:26)
[2020-11-13] MEDS: PRENATAL VITAMINS W/ FOLIC ACID TABLET (FP) PO SCH (10:26)
[2020-11-13] MEDS: OXYBUTYNIN CHLORIDE 5 MG TABLET PO SCH ×2 (10:26→21:25)
[2020-11-13] MEDS: DIVALPROEX SODIUM 500 MG TABLET E.C. PO SCH ×2 (10:26→21:25)
[2020-11-13] MEDS: MELATONIN 5 MG TABLETS PO SCH (21:25)
[2020-11-13] MEDS: THIAMINE HCL 100 MG TABLET (FP) PO SCH (21:25)
[2020-11-13] MEDS: ATORVASTATIN CA 10 MG TABLET (FP) PO SCH (21:25)
[2020-11-13] MEDS: traZODone HCL 100 MG TABLET (FP) PO SCH (21:25)
[2020-11-13] MEDS: LIDOCAINE PATCH REMOVAL MC SCH (21:26)
[2020-11-14 06:47] VITALS: TEMP 98.1
[2020-11-14] MEDS: TAMSULOSIN HCL 0.4 MG CAP PO SCH (08:43)
[2020-11-14] MEDS: METHOCARBAMOL 750 MG TABLET PO SCH (09:43)
[2020-11-14] MEDS: LIDOCAINE 5% TOPICAL PATCH TP SCH (09:43)
[2020-11-14] MEDS: PRENATAL VITAMINS W/ FOLIC ACID TABLET (FP) PO SCH (09:43)
[2020-11-14] MEDS: ESCITALOPRAM OXALATE 20 MG TABLET PO SCH (09:43)
[2020-11-14] MEDS: DIVALPROEX SODIUM 500 MG TABLET E.C. PO SCH (09:43)
[2020-11-14] MEDS: OXYBUTYNIN CHLORIDE 5 MG TABLET PO SCH (09:43)
[2020-11-14] MEDS: METOPROLOL TARTRATE 50 MG TABLET (FP) PO SCH (09:43)
[2020-11-14 10:26] VITALS: BP 100/71; PULSE 93
== END 2020-11-14 09:23 | disposition home or self-care (01) | DRG 895 ==
LOC: YASAS 11:52 → Y3N 14:50 → Y3W 10-30 12:01 → Y5N 11-09 18:31 → Y3W 11-09 19:45
PROVIDERS: ADMIT Allergy & Immunology; ATTEND Allergy & Immunology
PROC: HZ42ZZZ Group Counseling for Substance Abuse Treatment, Cognitive-Behavioral (ICD-10-PCS; principal; 2020-10-25)
DX: F10.20 Alcohol dependence, uncomplicated (principal); F10.280 Alcohol dependence with alcohol-induced anxiety disorder; F10.282 Alcohol dependence with alcohol-induced sleep disorder; F17.210 Nicotine dependence, cigarettes, uncomplicated; F31.70 Bipolar disorder, currently in remission, most recent episode unspecified; F43.10 Post-traumatic stress disorder, unspecified; F41.0 Panic disorder [episodic paroxysmal anxiety]; I10 Essential (primary) hypertension; E78.5 Hyperlipidemia, unspecified; N40.0 Benign prostatic hyperplasia without lower urinary tract symptoms
CPT/HCPCS: 36415; 73130-TC-RT-FY; 80053; 80164; 85025; 85027; 86780; 87389; 90670; C9803; U0003